=== PATIENT | female | born 1970 | race Caucasian/White ===

== ENCOUNTER 2019-05-14 11:51 | Day surgery (SDC) | payer OTHER ==
[2019-05-13 10:42] VITALS: BMI 28.7
[2019-05-14 15:14] VITALS: TEMP 97.5
[2019-05-14 15:40] VITALS: BP 113/73; PULSE 82
--- NOTE | 2019-05-19 14:16 | PATH ---
Surgical Pathology Report Patient Name: RONDA BURLESON [facility]. Rec. #: [id number] /Age/Gender: 1970 (Age: 48) / F Account: [id number] Location: [facility] Taken: 05/14/2019 Received: 05/14/2019 Reported: 05/19/2019 Physicians: Radha Lancaster M.D. Specimen(s) Received A: SECOND PORTION OF DUODENUM B: GASTRIC ANTRUM C: GE JUNCTION Clinical History Abdominal pain Postoperative diagnosis: Gastritis Final Diagnosis A. SECOND PORTION OF DUODENUM, BIOPSY: DUODENAL MUCOSA WITH NO PATHOLOGIC FINDINGS. B. GASTRIC ANTRUM, BIOPSY: MODERATE CHRONIC GASTRITIS. IMMUNOSTAIN IS NEGATIVE FOR H. PYLORI ORGANISMS. C. GE JUNCTION, BIOPSY: ESOPHAGOGASTRIC JUNCTIONAL (SQUAMOCOLUMNAR) MUCOSA SHOWING MILD CHRONIC INFLAMMATION. NEGATIVE FOR INTESTINAL METAPLASIA. Electronically Signed Adela Valero M.D. Gross Description A. Received in formalin, labeled "biopsy second portion of duodenum" is a [place], irregular portion of soft tissue measuring 0.3 cm. in greatest dimension. The specimen is submitted in toto in one cassette. B. Received in formalin, labeled "biopsy gastric antrum" is a [place], irregular portion of soft tissue measuring 0.3 cm. in greatest dimension. The specimen is submitted in toto in one cassette. C. Received in formalin, labeled "biopsy GE junction" are 2 [place], irregular portions of soft tissue averaging 0.2 cm. in greatest dimension. The specimens are submitted in toto in one cassette. 05/15/2019 saudi05/15/2019
== END 2019-05-14 14:15 | disposition home or self-care (01) ==
LOC: FASU-ENDO 11:51
PROVIDERS: ATTEND Internal Medicine Gastroenterology
PROC: 0DB68ZX Excision of Stomach, Via Natural or Artificial Opening Endoscopic, Diagnostic (ICD-10-PCS; 2019-05-14)
PROC: 0DB48ZX Excision of Esophagogastric Junction, Via Natural or Artificial Opening Endoscopic, Diagnostic (ICD-10-PCS; 2019-05-14)
PROC: 0DB98ZX Excision of Duodenum, Via Natural or Artificial Opening Endoscopic, Diagnostic (ICD-10-PCS; principal; 2019-05-14 13:19)
DX: K29.50 Unspecified chronic gastritis without bleeding (principal); K20.9 Esophagitis, unspecified; R10.9 Unspecified abdominal pain
CPT/HCPCS: 88305-TC; 88342-TC

== ENCOUNTER 2019-06-25 11:00 | Day surgery (SDC) | payer OTHER ==
[2019-06-19 15:48] VITALS: BMI 28.7
[2019-06-25 13:28] VITALS: TEMP 97.3
[2019-06-25 13:36] VITALS: BP 123/67
--- NOTE | 2019-06-27 15:05 | PATH ---
Surgical Pathology Report Patient Name: RONDA BURLESON [facility]. Rec. #: [id number] /Age/Gender: 1970 (Age: 49) / F Account: [id number] Location: [facility] Taken: 06/25/2019 Received: 06/25/2019 Reported: 06/27/2019 Physicians: Radha Lancaster M.D. Specimen(s) Received ASCENDING COLON AND CECUM Clinical History Screening Postoperative diagnosis: Colon polyp, hemorrhoids Final Diagnosis ASCENDING COLON AND CECUM, POLYPECTOMY: TUBULAR ADENOMA(S). Electronically Signed Radha Saini M.D. Gross Description Received in formalin labeled "hot snare polypectomy junction of ascending and cecum," is a 0.7 x 0.5 x 0.1 cm aggregate of [place] soft tissue fragments. The formalin is filtered and the specimen is entirely submitted in one cassette. /06/26/2019 saudi06/26/2019
[2019-07-11 12:06] VITALS: PULSE 40
== END 2019-06-25 13:36 | disposition home or self-care (01) ==
LOC: FASU-ENDO 11:00
PROVIDERS: ATTEND Internal Medicine Gastroenterology
PROC: 0DBK8ZX Excision of Ascending Colon, Via Natural or Artificial Opening Endoscopic, Diagnostic (ICD-10-PCS; principal; 2019-06-25 12:52)
DX: D12.2 Benign neoplasm of ascending colon (principal); K64.1 Second degree hemorrhoids; R10.9 Unspecified abdominal pain
CPT/HCPCS: 88305-TC

== ENCOUNTER 2022-12-29 11:19 | Day surgery (SDC) | payer OTHER ==
[2022-12-28 12:33] VITALS: BMI 27.1
[2022-12-29 11:45] VITALS: RESP 16
[2022-12-29 13:40] VITALS: TEMP 98
[2022-12-29 14:00] VITALS: BP 110/65; PULSE 80
== END 2022-12-29 14:10 | disposition home or self-care (01) ==
LOC: FASU-ENDO 11:19
PROVIDERS: ATTEND Internal Medicine Gastroenterology
PROC: 0DJD8ZZ Inspection of Lower Intestinal Tract, Via Natural or Artificial Opening Endoscopic (ICD-10-PCS; principal; 2022-12-29 13:14)
DX: Z12.11 Encounter for screening for malignant neoplasm of colon (principal); Z86.010 Personal history of colon polyps; K64.1 Second degree hemorrhoids

== ENCOUNTER 2023-02-23 09:58 | Day surgery (SDC) | payer OTHER ==
[2023-02-16 12:10] VITALS: BMI 27.1
[2023-02-23 11:01] VITALS: RESP 18; TEMP 97.2
[2023-02-23 11:14] VITALS: BP 95/65; PULSE 80
== END 2023-02-23 11:25 | disposition home or self-care (01) ==
LOC: FASU-ENDO 09:58
PROVIDERS: ATTEND Internal Medicine Gastroenterology
PROC: 0DB68ZX Excision of Stomach, Via Natural or Artificial Opening Endoscopic, Diagnostic (ICD-10-PCS; 2023-02-23)
PROC: 0DB48ZX Excision of Esophagogastric Junction, Via Natural or Artificial Opening Endoscopic, Diagnostic (ICD-10-PCS; 2023-02-23)
PROC: 0DB98ZX Excision of Duodenum, Via Natural or Artificial Opening Endoscopic, Diagnostic (ICD-10-PCS; principal; 2023-02-23 10:42)
DX: K29.50 Unspecified chronic gastritis without bleeding (principal); K50.90 Crohn's disease, unspecified, without complications; R10.13 Epigastric pain
CPT/HCPCS: 88305-TC; 88342-TC